=== PATIENT | male | born 1985 | race Caucasian/White ===

== ENCOUNTER → 2018-03-26 | Outpatient (REF) | LOC: M SMT 14:57 | DX: Z02.71 Encounter for disability determination (principal) ==

== ENCOUNTER → 2025-03-18 | Outpatient (REF) | LOC: M PLAIMG 13:11 | PROVIDERS: ATTEND Internal Medicine | DX: M54.50 Low back pain, unspecified (principal); M25.512 Pain in left shoulder ==